=== PATIENT | female | born 1960 | race African-American/Black ===

== ENCOUNTER 2016-12-31 10:15 | Emergency (ER) | payer MEDICAID ==
[~2016-12-31] VITALS: Ht 157.5 cm; Wt 72.6 kg
[~2016-12-31 10:15] MED LIST: CHLO25TA22; ENAL-3; GABA300C8; METF-314; NITR0.4S31; OLAN15TA16; PREDNISONE 20 MG TABLET; SIMV-13; TRAM50TA2; TRAZ150T79; [UNRECOGNIZED DRUG - CODE]
[2016-12-31 15:26] VITALS: BP 194/93
== END 2016-12-31 15:31 | disposition home or self-care (01) ==
LOC: ER 10:15
DX: G89.29 Other chronic pain (principal); M54.5 Low back pain; Z76.0 Encounter for issue of repeat prescription; Z88.8 Allergy status to other drugs, medicaments and biological substances; E11.9 Type 2 diabetes mellitus without complications; E78.5 Hyperlipidemia, unspecified; I10 Essential (primary) hypertension; Z90.710 Acquired absence of both cervix and uterus; F17.210 Nicotine dependence, cigarettes, uncomplicated; F12.10 Cannabis abuse, uncomplicated; Z79.899 Other long term (current) drug therapy

== ENCOUNTER 2017-01-10 18:39 | Emergency (ER) | payer MEDICAID ==
[~2017-01-10] VITALS: Ht 165.1 cm; Wt 71.7 kg
[2017-01-10 18:47] VITALS: BP 138/99
== END 2017-01-11 00:38 | disposition left against medical advice (07) ==
LOC: ER 18:39
DX: M79.605 Pain in left leg (principal); M79.604 Pain in right leg; Z53.21 Procedure and treatment not carried out due to patient leaving prior to being seen by health care provider

== ENCOUNTER 2017-04-06 14:49 | Emergency (ER) | payer MEDICAID ==
[~2017-04-06] VITALS: Ht 160 cm; Wt 72.6 kg
[~2017-04-06 14:49] MED LIST changes: +GABA-497; -GABA300C8; -METF-314; +METF-371
[2017-04-06 15:05] VITALS: BP 143/92
[2017-04-06] MEDS ORDERED: KETOROLAC TROMETH 60MG/2ML VIAL IM ONE (16:00)
== END 2017-04-06 16:24 | disposition home or self-care (01) ==
LOC: ER 14:49
DX: G89.29 Other chronic pain (principal); M54.5 Low back pain; E11.9 Type 2 diabetes mellitus without complications; E78.5 Hyperlipidemia, unspecified; I10 Essential (primary) hypertension; F17.210 Nicotine dependence, cigarettes, uncomplicated; F12.90 Cannabis use, unspecified, uncomplicated; M51.36 Other intervertebral disc degeneration, lumbar region; Z91.018 Allergy to other foods; Z90.710 Acquired absence of both cervix and uterus
CPT/HCPCS: 96372; 99283; J1885

== ENCOUNTER 2017-04-12 11:17 | Emergency (ER) | payer MEDICAID ==
[~2017-04-12] VITALS: Ht 160 cm; Wt 68.0 kg
[2017-04-12 12:59] VITALS: BP 163/96
== END 2017-04-12 13:38 | disposition home or self-care (01) ==
LOC: ER 11:17
DX: G89.29 Other chronic pain (principal); M54.5 Low back pain; E11.9 Type 2 diabetes mellitus without complications; E78.5 Hyperlipidemia, unspecified; I10 Essential (primary) hypertension; F17.210 Nicotine dependence, cigarettes, uncomplicated; F12.10 Cannabis abuse, uncomplicated; Z90.710 Acquired absence of both cervix and uterus; Z76.0 Encounter for issue of repeat prescription; Z91.018 Allergy to other foods; Z79.899 Other long term (current) drug therapy

== ENCOUNTER 2018-11-28 12:06 | Inpatient (IN) | payer MEDICAID ==
[~2018-11-28] VITALS: Ht 160 cm; Wt 84.0 kg
[~2018-11-28 12:06] MED LIST changes: -GABA-497; +GABA300C10
[2018-11-28] MEDS ORDERED: ASPirin 81 mg TAB PO ONE ×2 (13:15→13:30)
[2018-11-28 14:04] LABS: Albumin 3.6 g/dL (3.4-5.0); Anion Gap 7 (5-15); Blood Urea Nitrogen 14 mg/dL (7-18); Calcium 9.4 mg/dL (8.5-10.1); Carbon Dioxide 27 mmol/L (21-32); Chloride 105 mmol/L (98-107); Glucose 83 mg/dL (74-106); Magnesium 2.7 mg/dL (1.6-2.6); Potassium 3.7 mmol/L (3.5-5.1); Sodium 139 mmol/L (136-145)
[2018-11-28 14:07] LABS: Alanine Aminotransferase 14 U/L (13-56); Aspartate Aminotransferase 15 U/L (15-37); BUN/Creatinine Ratio 13.6; GFR African American 71 mL/min; GFR Non-African American 59 mL/min
[2018-11-28 14:12] LABS: Alkaline Phosphatase 159 U/L (45-117); Bilirubin, Total 0.2 mg/dL (0.2-1.0); Total Protein 8.2 g/dL (6.4-8.2)
[2018-11-28 14:13] LABS: INR 0.93 (0.9-1.15); Partial Thromboplastin Time 33.6 sec (23.78-33.04)
[2018-11-28 14:18] LABS: Hemoglobin 14.2 g/dL (12.2-16.2); Red Cell Distribution Width 13.4 % (11.8-14.3); White Blood Cell 6.5 10^3/uL (4.4-10.8)
[2018-11-28 14:20] LABS: Hematocrit 43.5 % (36.0-46.0); Mean Corpuscular Hgb Conc. 32.7 g/dL (32.0-36.0); Mean Corpuscular Volume 88.7 fL (80.0-100.0); Platelet Count (auto) 500 10^3/uL (140-450)
[2018-11-28 14:22] LABS: Band Neutrophils % (manual) 0; Basophils % (manual) 0 (0.0-2.0); Blast Cells 0; Metamyelocytes % 0; Myelocytes % 0; Promyelocytes % 0
[2018-11-28 15:38] LABS: Eosinophils % (manual) 3 (0-7); Lymphocytes % (manual) 43 (10.0-50.0); Monocytes % (manual) 16 (0-12); Reactive Lymphocytes 9
[2018-11-28] MEDS ORDERED: IOHEXOL 350 MG/ML 100ML IJ ONE (16:44)
[2018-11-28] MEDS ORDERED: DEXTROSE (50%) 50ML SYRG IV PRN (19:30)
[2018-11-28] MEDS ORDERED: ACETAMINOPHEN 500 MG TAB PO PRN (19:30)
[2018-11-28] MEDS ORDERED: LACTULOSE 20Gm/30ML SOLN PO PRN (19:30)
[2018-11-28] MEDS ORDERED: PROMETHAZINE HCL 25 MG/ML 1ML IV PRN (19:30)
[2018-11-28] MEDS ORDERED: NITROGLYCERIN 0.4 MG SL TAB SL PRN (19:30)
[2018-11-28] MEDS ORDERED: TEMAZEPAM 15 MG CAP PO PRN (19:30)
[2018-11-28] MEDS ORDERED: MORPHINE SULF INJ 2 MG/ML SYRINGE 1ML IV PRN (19:30)
[2018-11-28] MEDS: SODIUM CHLORIDE 0.9% 1,000 ML IV SCH (20:43)
[2018-11-28 21:30] VITALS: BP 133/87
--- NOTE | 2018-11-28 21:50 | NUR ---
Telemetry admit from ER KATHLEEN AMAYA admitted to Telemetry unit after SBAR received. Patient oriented to Laura sigala RN, unit, room, bed, and unit policies regarding patient care and visiting hours. Patient now on continuous telemetry monitoring, tele box # HC 7 and telemetry reading on arrival to unit is SR 77. Patient placed on bedside oxygen, weighed by bedscale and encouraged to call if they need something. All questions and concerns addressed, patient verbalized understanding. Note:
[2018-11-28 22:30] VITALS: BP 133/87
[2018-11-28] MEDS: InsuLIN REG 1unit/0.01ml Soln (100units/ml) SC SCH (22:30)
[2018-11-28] MEDS: traZODone HCL 50 MG TAB PO SCH (23:01)
[2018-11-28] MEDS: ATORVASTATIN 20 MG TAB PO SCH (23:02)
[2018-11-28] MEDS: GABAPENTIN 300 MG CAP PO SCH (23:03)
[2018-11-28] MEDS: METOPROLOL TARTRATE 25 MG TAB PO SCH (23:03)
[2018-11-28] MEDS: ACCU-CHEK COMFORT CURVE STRIP VI SCH (23:04)
[2018-11-29] MEDS ORDERED: MIR30T PO (03:43)
[2018-11-29] MEDS ORDERED: ESCI20TA51 PO (03:43)
[2018-11-29] MEDS ORDERED: TRAZ-220 PO (03:43)
[2018-11-29] MEDS ORDERED: CYCL5TAB PO (03:43)
[2018-11-29] MEDS ORDERED: LISI-646 PO (03:43)
[2018-11-29] MEDS ORDERED: CHOL20007 OR (03:43)
[2018-11-29] MEDS ORDERED: METF-489 PO (03:43)
[2018-11-29] MEDS ORDERED: ASPI81CH43 PO (03:43)
[2018-11-29] MEDS ORDERED: MELO1TAB56 PO (03:43)
[2018-11-29] MEDS ORDERED: FER325T PO (03:43)
[2018-11-29] MEDS ORDERED: LURA80TA PO (03:43)
[2018-11-29] MEDS: InsuLIN REG 1unit/0.01ml Soln (100units/ml) SC SCH ×4 (05:36→22:00)
[2018-11-29] MEDS: traMADol HCL 50 MG TAB PO PRN ×2 (05:36→21:36)
[2018-11-29] MEDS: ACCU-CHEK COMFORT CURVE STRIP VI SCH ×4 (05:36→22:00)
[2018-11-29 05:40] VITALS: BP 141/73
[2018-11-29 06:01] LABS: Cholesterol 225 mg/dL (< 200); HDL Cholesterol 39 mg/dL (40-59); LDL Cholesterol 163 mg/dL (< 100); Triglycerides 130 mg/dL (< 150)
--- NOTE | 2018-11-29 08:00 | NUR ---
Opening Shift Note Assumed care of patient, awake, alert and oriented X4. No S/S of distress/SOB or pain. Tele# 7, sinus rhythm @ 70 bpm. IV to left antecubital, 20 gauge, patent and infusing 0.9% NS @ 75 ml/hr. Instructed on POC and to call for assist PRN, verbalized understanding. Bed locked, in lowest position, call light within reach, will continue to monitor for changes Q1hr and PRN.
[2018-11-29 09:00] VITALS: BP 135/72
--- NOTE | 2018-11-29 10:20 | NUR ---
CARDIO Dr Sweet at bedside for Cardiology consult, new orders received and followed through. Patient updated on plan of care, verbalized understanding.
[2018-11-29] MEDS: ASPirin 81 mg TAB PO SCH (10:51)
[2018-11-29] MEDS: METOPROLOL TARTRATE 25 MG TAB PO SCH ×2 (10:52→21:26)
[2018-11-29] MEDS: GABAPENTIN 300 MG CAP PO SCH ×2 (10:52→21:27)
[2018-11-29] MEDS: PANTOPRAZOLE 40 MG TAB PO SCH (10:52)
[2018-11-29] MEDS: ENALAPRIL MALEATE 10 MG TAB PO SCH (10:52)
[2018-11-29] MEDS: OLANZapine 5 MG TAB PO SCH (10:53)
[2018-11-29] MEDS: ENOXAPARIN SOD 40 MG/0.4 ML SYRINGE SC SCH (10:53)
[2018-11-29] MEDS: NITROGLYCERIN 0.2MG/HR TOPICAL PATCH TD SCH (10:54)
[2018-11-29 13:00] VITALS: BP_SYST 134; BP_SYST 159; BP_DIAS 68; BP_DIAS 78
[2018-11-29] MEDS: SODIUM CHLORIDE 0.9% 1,000 ML IV SCH (14:40)
--- NOTE | 2018-11-29 19:24 | NUR ---
Care endorsed to OTONIEL Barreto, night nurse.
[2018-11-29 20:36] VITALS: BP 134/72
[2018-11-29] MEDS: ATORVASTATIN 20 MG TAB PO SCH (21:25)
[2018-11-29] MEDS: traZODone HCL 50 MG TAB PO SCH (21:33)
--- NOTE | 2018-11-30 04:24 | NUR ---
Opening Shift Note Assumed care of patient, awake and alert. No S/S of distress/SOB or pain. Insructed on POC and to callfor assist PRN, will continue to monitor for changes Q1hr and PRN.
[2018-11-30 04:52] VITALS: BP 136/72
[2018-11-30] MEDS: SODIUM CHLORIDE 0.9% 1,000 ML IV SCH ×2 (06:00→17:51)
[2018-11-30] MEDS: ACCU-CHEK COMFORT CURVE STRIP VI SCH ×4 (07:00→21:47)
[2018-11-30] MEDS: InsuLIN REG 1unit/0.01ml Soln (100units/ml) SC SCH ×4 (07:00→21:47)
--- NOTE | 2018-11-30 08:00 | NUR ---
Opening Shift Note Assumed care of patient, awake, alert and oriented X4. No S/S of distress/SOB or pain. Tele #7, sinus rhythm @62 bpm. IV to left antecubital, 20 gauge, patent and infusing 0.9% NS @ 75 ml/hr. Instructed on POC and to call for assist PRN, verbalized understanding. Bed locked, in lowest position, call light within reach, will continue to monitor for changes Q1hr and PRN.
[2018-11-30 09:00] VITALS: BP 163/79
--- NOTE | 2018-11-30 10:35 | NUR ---
CARDIOLOGY Dr Sweet at bedside for Cardiac follow up, new orders received and followed through. Patient updated on plan of care, verbalized understanding.
[2018-11-30] MEDS: ASPirin 81 mg TAB PO SCH (10:48)
[2018-11-30] MEDS: ENOXAPARIN SOD 40 MG/0.4 ML SYRINGE SC SCH (10:49)
[2018-11-30] MEDS: METOPROLOL TARTRATE 25 MG TAB PO SCH ×2 (10:49→21:47)
[2018-11-30] MEDS: GABAPENTIN 300 MG CAP PO SCH ×2 (10:49→21:47)
[2018-11-30] MEDS: PANTOPRAZOLE 40 MG TAB PO SCH (10:49)
[2018-11-30] MEDS: OLANZapine 5 MG TAB PO SCH (10:50)
[2018-11-30] MEDS: ENALAPRIL MALEATE 10 MG TAB PO SCH (10:50)
[2018-11-30] MEDS: NITROGLYCERIN 0.2MG/HR TOPICAL PATCH TD SCH (10:51)
--- NOTE | 2018-11-30 11:05 | NUR ---
KATHLEEN AMAYA states they want to leave the floor Against Medical Advice (AMA) to go outside and smoke. Patient encouraged to stay on floor and not smoke. Dr Givens notified of patient's wishes. Patient advised of the risks and benefits of leaving AMA. Patient verbalized understanding and signed required AMA form.
--- NOTE | 2018-11-30 11:27 | NUR ---
ROUNDS Dr Givens at bedside for rounds, new orders received and followed through. Patient updated on plan of care, verbalized understanding.
[2018-11-30 13:00] VITALS: BP 158/76
[2018-11-30] MEDS: traMADol HCL 50 MG TAB PO PRN (16:33)
[2018-11-30 17:00] VITALS: BP 135/72
--- NOTE | 2018-11-30 19:12 | NUR ---
Care endorsed to OTONIEL Lee, night nurse.
--- NOTE | 2018-11-30 19:40 | NUR ---
Opening Shift Note Assumed care of patient, awake and alert. No S/S of distress/SOB or pain. Bed locked in lowest position, side rails upx2, call light within reach. Instructed on POC and to call for assist PRN, will continue to monitor for changes Q1hr and PRN.
--- NOTE | 2018-11-30 20:30 | NUR ---
IV insertion IV access obtained, via clean sterile technique by inserting 22 gauge catheter at right hand after 1 attempt(s). IV secured properly. No trauma to site. Patient tolerated well.
[2018-11-30] MEDS: ATORVASTATIN 20 MG TAB PO SCH (21:47)
[2018-11-30] MEDS: traZODone HCL 50 MG TAB PO SCH (21:47)
[2018-12-01 00:16] VITALS: BP 158/78
[2018-12-01] MEDS: SODIUM CHLORIDE 0.9% 1,000 ML IV SCH ×2 (00:47→14:07)
--- NOTE | 2018-12-01 05:03 | NUR ---
Paged hospitalist regarding patient's high blood pressure. Received orders to give 1000 scheduled dose of enalapril now. Will carry out.
[2018-12-01] MEDS: ENALAPRIL MALEATE 10 MG TAB PO SCH (05:13)
--- NOTE | 2018-12-01 05:24 | NUR ---
IV insertion IV access obtained, via clean sterile technique by inserting 20 gauge catheter at right forearm after 1 attempt(s). IV secured properly. No trauma to site. Patient tolerated well.
[2018-12-01 05:35] VITALS: BP 168/84
[2018-12-01] MEDS: InsuLIN REG 1unit/0.01ml Soln (100units/ml) SC SCH ×4 (06:19→22:00)
[2018-12-01] MEDS: ACCU-CHEK COMFORT CURVE STRIP VI SCH ×4 (06:20→22:00)
[2018-12-01 07:55] VITALS: BP 142/78
[2018-12-01] MEDS ORDERED: MIDAZOLAM HCL 1MG/1ML-2 ML VIAL IV ONE (08:00)
[2018-12-01] MEDS ORDERED: fentaNYL CITRATE 100 MCG/2 ML VL IV ONE (08:00)
[2018-12-01] MEDS ORDERED: LIDOCAINE VISCOUS 2% 15ML UD MT ONE (08:00)
--- NOTE | 2018-12-01 08:00 | NUR ---
RECEIVED PATIENT ALERT AND ORIENTED X4, NOT IN DISTRESS, LUNG SOUNDS CLEAR SOUNDS IN BILATERAL UPPER AND LOWER LUNG LOBED, RR= 20 JGZ=655%, SR R=80 ON TELE MONITOR, DENIED CHEST PAIN OR DISCOMFORT AT THIS MOMENT, ABDOMEN SOFT WITH ACTIVE BS, LAST BM=11/30/18 REPORTED, KEEP NPO ORDERED, SKIN INTACT WARM TO TOUCH, DENIED PAIN, WENT ON BED OUT OF UNIT FOR [facility], WILL CONTINUE MONITORING.
--- NOTE | 2018-12-01 08:30 | NUR ---
CAME BACK FROM [facility], TOLERATED WELL, TOLERATED BREAKFAST TRAY WELL, STRESS TEST NOTIFIED THAT PATIENT ATE BREAKFAST, KEEP NPO POST BREAKFAST ORDERED, WILL CONTINUE MONITORING.
[2018-12-01] MEDS ORDERED: ADENOSINE 69 MG in GIVE UN-DILUTED 0 ML IV STA (08:33)
--- NOTE | 2018-12-01 11:11 | NUR ---
WENT OUT OF THE UNIT FOR SMOKING AND CAME BACK , RESTING ON BED, NOT IN DISTRESS, DENIED PAIN, WILL CONTINUE MONITORING.
[2018-12-01] MEDS: ASPirin 81 mg TAB PO SCH (11:26)
[2018-12-01] MEDS: GABAPENTIN 300 MG CAP PO SCH ×2 (11:27→22:08)
[2018-12-01] MEDS: PANTOPRAZOLE 40 MG TAB PO SCH (11:27)
[2018-12-01] MEDS: METOPROLOL TARTRATE 25 MG TAB PO SCH ×2 (11:27→22:08)
[2018-12-01] MEDS: ENOXAPARIN SOD 40 MG/0.4 ML SYRINGE SC SCH (11:28)
[2018-12-01] MEDS: OLANZapine 5 MG TAB PO SCH (11:28)
[2018-12-01] MEDS: NITROGLYCERIN 0.2MG/HR TOPICAL PATCH TD SCH (11:29)
[2018-12-01 15:01] VITALS: BP 187/67
[2018-12-01] MEDS: traMADol HCL 50 MG TAB PO PRN (17:52)
--- NOTE | 2018-12-01 19:39 | NUR ---
NOT IN DISTRESS DENIED, DENIED PAIN, RESTING ON BED, REPORT WAS GIVEN TO THE BRASS [employer]DER HELPER RN.
[2018-12-01 21:59] VITALS: BP 157/85
[2018-12-01] MEDS: ATORVASTATIN 20 MG TAB PO SCH (22:07)
[2018-12-01] MEDS: traZODone HCL 50 MG TAB PO SCH (22:07)
[2018-12-02] MEDS: SODIUM CHLORIDE 0.9% 1,000 ML IV SCH (03:27)
[2018-12-02 04:56] VITALS: BP 162/86
[2018-12-02] MEDS: ACCU-CHEK COMFORT CURVE STRIP VI SCH ×2 (06:17→11:30)
[2018-12-02] MEDS: InsuLIN REG 1unit/0.01ml Soln (100units/ml) SC SCH ×2 (06:17→11:30)
--- NOTE | 2018-12-02 07:31 | NUR ---
RECEIVED PATIENT ALERT AND ORIENTED X4, NOT IN DISTRESS, LUNG CLEAR SOUNDS IN BILATERAL UPPER AND DIMINISHED IN BILATERAL LOWER LUNG LOBED, RR= 20 SAT=95%, SR R=71 ON TELE MONITOR, ABDOMEN SOFT WITH ACTIVE BS, LAST BM=12/01/18 REPORTED, SKIN INTACT WARM TO TOUCH, RESTING AND SLEEPING ON BED, HEAD OF BED ELEVATED, BED ON LOW POSITION, RAILS UP X2, CALL LIGHT ON REACH, WILL CONTINUE MONITORING.
[2018-12-02 08:00] VITALS: BP 151/75
[2018-12-02] MEDS: ASPirin 81 mg TAB PO SCH (10:05)
[2018-12-02] MEDS: OLANZapine 5 MG TAB PO SCH (10:06)
[2018-12-02] MEDS: GABAPENTIN 300 MG CAP PO SCH (10:06)
[2018-12-02] MEDS: METOPROLOL TARTRATE 25 MG TAB PO SCH (10:06)
[2018-12-02] MEDS: ENOXAPARIN SOD 40 MG/0.4 ML SYRINGE SC SCH (10:07)
[2018-12-02] MEDS: NITROGLYCERIN 0.2MG/HR TOPICAL PATCH TD SCH (10:07)
[2018-12-02] MEDS: traMADol HCL 50 MG TAB PO PRN (10:08)
[2018-12-02] MEDS: PANTOPRAZOLE 40 MG TAB PO SCH (10:09)
[2018-12-02] MEDS: ENALAPRIL MALEATE 10 MG TAB PO SCH (10:09)
--- NOTE | 2018-12-02 10:45 | NUR ---
NOT IN DISTRESS, DENIED PAIN, WENT OUT OF THE UNIT FOR SMOKING, AMA FOR SMOKING ON THE CHART.
--- NOTE | 2018-12-02 11:49 | NUR ---
CAME BACK TO THE ROOM FROM SMOKING, NOT IN DISTRESS, DENIED PAIN, RESTING ON BED.
--- NOTE | 2018-12-02 12:45 | NUR ---
Nutrition Assessment Notes please see attached link for complete assessment Est. Needs ABW [id number] kcal (23-25 kcal/kgBW), 65-71 gms pro (1.0-1.1 gm/kgBW). Will continue to monitor pertinent labs and reassess nutrient need prn. Addendum: 12/02/18 at [address] Amended: Links added.
[2018-12-02 13:47] VITALS: BP 146/82
[2018-12-02 15:00] VITALS: BP 139/78
--- NOTE | 2018-12-02 15:30 | NUR ---
D/C INSTRUCTIONS WERE GIVEN, FOLLOW UP WITH PCP AND CARDIOLOGY INFORMATION AND EDUCATION PROVIDED, VERBALIZED UNDERSTANDING, FOLLOW UP APPOINTMENT WITH DR. GONZALES WILL BE ARRANGED FROM HOME REPORTED, D/C TELE MONITOR AND IV SITES, TOLERATED WELL, VS T=97.8 RR=18 SAT=96% P=68 XG=298/78, NOT IN DISTRESS AND DENIED PAIN, WC WAS PROVIDED, D/C HOME WALKING WITH WALKER ACCOMPANIED BY FAMILY MEMBERS, TOOK ALL BELONGINGS AND LEFT NOTHING BEHIND.
== END 2018-12-02 15:30 | disposition home or self-care (01) | DRG 198 ==
LOC: ER 12:10 → TELE 19:31 → TELE-WESTW 23:05
PROVIDERS: ADMIT Internal Medicine; ATTEND Internal Medicine
PROC: B246ZZ4 Ultrasonography of Right and Left Heart, Transesophageal (ICD-10-PCS; principal; 2018-11-28)
DX: R07.89 Other chest pain (principal); I25.10 Atherosclerotic heart disease of native coronary artery without angina pectoris; E11.21 Type 2 diabetes mellitus with diabetic nephropathy; F41.9 Anxiety disorder, unspecified; F32.9 Major depressive disorder, single episode, unspecified; I10 Essential (primary) hypertension; E78.5 Hyperlipidemia, unspecified; E11.65 Type 2 diabetes mellitus with hyperglycemia; E83.41 Hypermagnesemia; F17.210 Nicotine dependence, cigarettes, uncomplicated; I35.1 Nonrheumatic aortic (valve) insufficiency; M06.9 Rheumatoid arthritis, unspecified; Z82.49 Family history of ischemic heart disease and other diseases of the circulatory system; Z83.3 Family history of diabetes mellitus; Z90.710 Acquired absence of both cervix and uterus; Z91.018 Allergy to other foods; Z79.899 Other long term (current) drug therapy
CPT/HCPCS: 36415; 71046; 71275; 78452; 80053; 80061; 82550; 82962; 83036; 83735; 83880; 84443; 84484; 85007; 85027; 85379; 85610; 85652; 85730; 86141; 87040; 93005; 93017; 93306; 93312; 96360; G0378; J0153; J1815; J2250

== ENCOUNTER 2021-12-19 21:09 | Inpatient (IN) | payer MEDICAID ==
[~2021-12-19] VITALS: Ht 157.5 cm; Wt 63.9 kg
[~2021-12-19 21:09] MED LIST changes: +ASPI81CH43 PO; +CHLO25TA2 PO; -CHLO25TA22; +CHOL20007 OR; +CYCL-837 PO; -ENAL-3; +ENAL10TA13 PO; +ESCI-34 PO; +FER325T PO; -GABA300C10; +GABA300C10 PO; +LISI20TA28 PO; +LURA80TA PO; +MELO1TAB56 PO; -METF-371; +METF-489 PO; +MIR30T PO; +OLAN15TA; -OLAN15TA16; -PREDNISONE 20 MG TABLET; +TRAZ-220 PO; -TRAZ150T79; -[UNRECOGNIZED DRUG - CODE]
[2021-12-19 22:37] LABS: Hematocrit 15.2 % (36.0-46.0); Mean Corpuscular Hemoglobin 15.4 pg (28.0-32.0); Mean Corpuscular Hgb Conc. 27.9 g/dL (32.0-36.0); Red Blood Cells 2.77 10^6/uL (4.0-5.20); White Blood Cell 9.9 10^3/uL (4.4-10.8)
[2021-12-19 22:48] LABS: Albumin 3.2 g/dL (3.4-5.0); Calcium 9.2 mg/dL (8.5-10.1); Magnesium 2.4 mg/dL (1.6-2.6); Potassium 4.3 mmol/L (3.5-5.1)
[2021-12-19 22:50] LABS: BUN/Creatinine Ratio 16.2
[2021-12-19 22:51] LABS: INR 1.07 (0.9-1.15); Partial Thromboplastin Time 24.4 sec (23.6-33.0)
[2021-12-19 22:52] LABS: Bilirubin, Total 0.2 mg/dL (0.2-1.0); Total Protein 6.2 g/dL (6.4-8.2)
[2021-12-19 23:00] LABS: Red Cell Distribution Width 20.6 % (11.8-14.3)
[2021-12-19 23:02] LABS: Hemoglobin 4.3 g/dL (12.2-16.2)
[2021-12-19 23:03] LABS: Basophils % (manual) 0 (0.0-2.0); Blast Cells 0; Eosinophils % (manual) 0 (0-7); Metamyelocytes % 0; Myelocytes % 0; Promyelocytes % 0; Reactive Lymphocytes 0
[2021-12-19 23:24] LABS: Band Neutrophils % (manual) 1; Lymphocytes % (manual) 20 (10.0-50.0); Monocytes % (manual) 6 (0-12)
[2021-12-19] MEDS ORDERED: CLOPIDOGREL 300 MG TAB PO ONE (23:30)
[2021-12-19] MEDS ORDERED: HEPARIN DRIP/D5W 100UNITS/ML 250 ML IV SCH (23:30)
[2021-12-19] MEDS ORDERED: HEPARIN SODIUM (PORCINE) 5000 UNITS/ML 1ML VIAL SC SCH (23:45)
[2021-12-20] VITALS (8 sets, daily range): BP systolic 145–189; BP diastolic 70–98
[2021-12-20] MEDS ORDERED: ONDANSETRON HCL 4 MG/2 ML VIAL IV PRN (02:45)
[2021-12-20] MEDS ORDERED: MORPHINE SULFATE INJECTION 2 MG/ML SYRG IV PRN (02:45)
[2021-12-20] MEDS ORDERED: DEXTROSE (50%) 50ML SYRG IV PRN (02:45)
[2021-12-20] MEDS ORDERED: NITROGLYCERIN 0.4 MG SL TAB SL PRN (02:45)
[2021-12-20] MEDS ORDERED: SODIUM CHLORIDE 0.9% 1,000 ML IV SCH (02:45)
[2021-12-20 03:22] LABS: % Iron Saturation 3.5 % (15-50)
[2021-12-20] MEDS: InsuLIN REG 1unit/0.01ml Soln (100units/ml) SC SCH ×4 (06:00→23:37)
[2021-12-20] MEDS: ACCU-CHEK COMFORT CURVE STRIP VI SCH ×4 (06:00→23:37)
[2021-12-20 07:11] LABS: Hematocrit 24.2 % (36.0-46.0); Hemoglobin 7.8 g/dL (12.2-16.2)
[2021-12-20] MEDS ORDERED: HEPARIN DRIP/D5W 100UNITS/ML 250 ML IV SCH (09:00)
[2021-12-20 09:29] LABS: INR 1.09 (0.9-1.15); Partial Thromboplastin Time 34.7 sec (23.6-33.0)
[2021-12-20] MEDS ORDERED: HEPARIN SODIUM (PORCINE) 5000 UNITS/ML 1ML VIAL IV ONE (10:30)
[2021-12-20] MEDS: PANTOPRAZOLE 40 MG/10 ML VIAL INJ IV SCH (10:50)
[2021-12-20] MEDS ORDERED: NICOTINE 21MG/24 HR TOPICAL PATCH TD ONE (12:45)
[2021-12-20] MEDS ORDERED: CARVEDILOL 3.125 MG TAB PO ONE (13:00)
[2021-12-20] MEDS: SODIUM CHLORIDE 0.9% 1,000 ML IV SCH (13:15)
[2021-12-20 14:27] LABS: Hematocrit 28.9 % (36.0-46.0); Hemoglobin 8.6 g/dL (12.2-16.2)
[2021-12-20] MEDS: CARVEDILOL 3.125 MG TAB PO SCH (21:35)
[2021-12-20] MEDS: ATORVASTATIN 20 MG TAB PO SCH (21:35)
[2021-12-20] MEDS ORDERED: LABETALOL HCL 5 MG/ML 4ML SYRINGE IV ONE (22:45)
[2021-12-20] MEDS ORDERED: TEMAZEPAM 15 MG CAP PO ONE (22:45)
[2021-12-21 05:00] VITALS: BP 158/88
[2021-12-21] MEDS: SODIUM CHLORIDE 0.9% 1,000 ML IV SCH ×2 (05:25→22:05)
[2021-12-21] MEDS: InsuLIN REG 1unit/0.01ml Soln (100units/ml) SC SCH ×2 (06:00→12:00)
[2021-12-21 06:03] LABS: Calcium 8.6 mg/dL (8.5-10.1); Magnesium 2.2 mg/dL (1.6-2.6); Potassium 4.2 mmol/L (3.5-5.1)
[2021-12-21 06:08] LABS: BUN/Creatinine Ratio 11.9; Bilirubin, Total 1.3 mg/dL (0.2-1.0); Total Protein 6.4 g/dL (6.4-8.2)
[2021-12-21 06:10] LABS: Mean Corpuscular Hgb Conc. 31.1 g/dL (32.0-36.0); White Blood Cell 13.7 10^3/uL (4.4-10.8)
[2021-12-21 06:12] LABS: Hematocrit 25.4 % (36.0-46.0); Hemoglobin 7.9 g/dL (12.2-16.2); Mean Corpuscular Hemoglobin 20.7 pg (28.0-32.0); Mean Corpuscular Volume 66.5 fL (80.0-100.0); Red Blood Cells 3.81 10^6/uL (4.0-5.20)
[2021-12-21 06:22] LABS: Basophils % (manual) 0 (0.0-2.0); Blast Cells 0; Eosinophils % (manual) 0 (0-7); Metamyelocytes % 0; Myelocytes % 0; Promyelocytes % 0; Reactive Lymphocytes 0
[2021-12-21] MEDS: ACCU-CHEK COMFORT CURVE STRIP VI SCH ×2 (06:22→12:26)
[2021-12-21 09:11] LABS: Band Neutrophils % (manual) 2; Lymphocytes % (manual) 11 (10.0-50.0); Monocytes % (manual) 5 (0-12)
[2021-12-21 09:12] VITALS: BP 173/84
[2021-12-21] MEDS: PANTOPRAZOLE 40 MG/10 ML VIAL INJ IV SCH (09:44)
[2021-12-21] MEDS: DOCUSATE SOD 100 MG CAP PO SCH ×2 (09:44→21:50)
[2021-12-21] MEDS: CARVEDILOL 3.125 MG TAB PO SCH (09:45)
[2021-12-21] MEDS: NICOTINE 21MG/24 HR TOPICAL PATCH TD SCH (09:46)
[2021-12-21 13:00] VITALS: BP 174/90
[2021-12-21] MEDS ORDERED: MIDAZOLAM HCL 5 MG/ML-1ML VIAL ONE (13:29)
[2021-12-21] MEDS ORDERED: LIDOCAINE VISCOUS 2% 15ML UD ONE (13:29)
[2021-12-21] MEDS ORDERED: diphenhdrAMINE HCL 50 MG/1 ML VL ONE (13:29)
[2021-12-21] MEDS ORDERED: fentaNYL CITRATE 100 MCG/2 ML VL ONE (13:29)
[2021-12-21] MEDS ORDERED: SODIUM CHLORIDE LOCK 10 ML ONE (13:29)
[2021-12-21] MEDS: hydrALAZINE HCL 20 MG/ML VL IV PRN ×2 (16:54→22:58)
[2021-12-21 17:10] VITALS: BP 176/78
[2021-12-21] MEDS: CARVEDILOL 12.5 MG TAB PO SCH (21:51)
[2021-12-21] MEDS: ATORVASTATIN 20 MG TAB PO SCH (21:51)
[2021-12-21 22:00] VITALS: BP 163/89
[2021-12-22 05:00] VITALS: BP 152/113
[2021-12-22 05:49] LABS: Hematocrit 25.5 % (36.0-46.0); Mean Corpuscular Hgb Conc. 31.3 g/dL (32.0-36.0); Mean Corpuscular Volume 67.1 fL (80.0-100.0); White Blood Cell 8.4 10^3/uL (4.4-10.8)
[2021-12-22] MEDS: hydrALAZINE HCL 20 MG/ML VL IV PRN (05:53)
[2021-12-22 06:01] LABS: Calcium 8.2 mg/dL (8.5-10.1)
[2021-12-22 06:08] LABS: Red Cell Distribution Width 35.1 % (11.8-14.3)
[2021-12-22 06:11] LABS: BUN/Creatinine Ratio 17.2; Basophils % (manual) 0 (0.0-2.0); Blast Cells 0; Metamyelocytes % 0; Myelocytes % 0; Promyelocytes % 0; Reactive Lymphocytes 0
[2021-12-22 06:34] LABS: Band Neutrophils % (manual) 3; Eosinophils % (manual) 6 (0-7); Lymphocytes % (manual) 14 (10.0-50.0); Monocytes % (manual) 8 (0-12)
[2021-12-22 09:00] VITALS: BP 108/50
[2021-12-22] MEDS: DOCUSATE SOD 100 MG CAP PO SCH ×2 (09:06→23:14)
[2021-12-22] MEDS: NICOTINE 21MG/24 HR TOPICAL PATCH TD SCH (09:06)
[2021-12-22] MEDS: CARVEDILOL 12.5 MG TAB PO SCH ×2 (09:06→22:56)
[2021-12-22] MEDS: PANTOPRAZOLE 40 MG/10 ML VIAL INJ IV SCH ×3 (09:06→23:12)
[2021-12-22] MEDS ORDERED: SODIUM CHLORIDE 0.9% 1,000 ML IV SCH (12:45)
[2021-12-22 13:00] VITALS: BP 146/68
[2021-12-22] MEDS: SODIUM FERR GLUC 62.5MG/5ML 125 MG in SODIUM CHL 0.9% 100 ML IV SCH (14:13)
[2021-12-22 16:39] VITALS: BP 137/68
[2021-12-22] MEDS: SUCRALFATE 1 GM TAB PO SCH ×2 (17:17→22:55)
[2021-12-22 22:00] VITALS: BP 161/79
[2021-12-22] MEDS: ATORVASTATIN 20 MG TAB PO SCH (22:56)
[2021-12-22] MEDS: ASCORBIC ACID 500 MG TAB PO SCH (22:57)
[2021-12-23 05:00] VITALS: BP 152/78
[2021-12-23] MEDS: hydrALAZINE HCL 20 MG/ML VL IV PRN ×2 (05:16→18:54)
[2021-12-23] MEDS: SUCRALFATE 1 GM TAB PO SCH ×4 (06:44→22:37)
[2021-12-23 08:11] LABS: Mean Corpuscular Volume 66.2 fL (80.0-100.0)
[2021-12-23 08:13] LABS: Hematocrit 25.7 % (36.0-46.0); Hemoglobin 8.1 g/dL (12.2-16.2); Mean Corpuscular Hemoglobin 20.8 pg (28.0-32.0); Mean Corpuscular Hgb Conc. 31.5 g/dL (32.0-36.0); Red Blood Cells 3.88 10^6/uL (4.0-5.20)
[2021-12-23 08:23] LABS: Red Cell Distribution Width 34.9 % (11.8-14.3)
[2021-12-23 08:25] LABS: Band Neutrophils % (manual) 0; Basophils % (manual) 0 (0.0-2.0); Blast Cells 0; Metamyelocytes % 0; Myelocytes % 0; Promyelocytes % 0; Reactive Lymphocytes 0
[2021-12-23 08:28] LABS: Calcium 8.6 mg/dL (8.5-10.1); Potassium 3.7 mmol/L (3.5-5.1)
[2021-12-23 08:32] LABS: BUN/Creatinine Ratio 14.6
[2021-12-23 08:41] LABS: Eosinophils % (manual) 6 (0-7); Lymphocytes % (manual) 31 (10.0-50.0); Monocytes % (manual) 4 (0-12)
[2021-12-23 09:00] VITALS: BP 151/75
[2021-12-23] MEDS: PANTOPRAZOLE 40 MG/10 ML VIAL INJ IV SCH ×2 (09:08→22:34)
[2021-12-23] MEDS: DOCUSATE SOD 100 MG CAP PO SCH ×2 (09:09→22:34)
[2021-12-23] MEDS: CARVEDILOL 12.5 MG TAB PO SCH ×2 (09:09→22:35)
[2021-12-23] MEDS ORDERED: ZOLPIDEM TARTRATE 5 MG TAB PO PRN (10:00)
[2021-12-23] MEDS ORDERED: MORPHINE SULFATE 4 MG/ML SYR/VIAL IV PRN (10:00)
[2021-12-23] MEDS: ASCORBIC ACID 500 MG TAB PO SCH ×2 (10:51→22:37)
[2021-12-23] MEDS ORDERED: MORPHINE SULFATE INJECTION 2 MG/ML SYRG IV PRN (11:45)
[2021-12-23] MEDS: ASPirin 81 mg TAB PO SCH (12:07)
[2021-12-23] MEDS: SODIUM FERR GLUC 62.5MG/5ML 125 MG in SODIUM CHL 0.9% 100 ML IV SCH (12:08)
[2021-12-23] MEDS: NICOTINE 21MG/24 HR TOPICAL PATCH TD SCH (12:34)
[2021-12-23 13:00] VITALS: BP 147/69
[2021-12-23 17:00] VITALS: BP 163/83
[2021-12-23] MEDS: MORPHINE SULFATE INJECTION 2 MG/ML SYRG IV PRN (18:48)
[2021-12-23 22:00] VITALS: BP 115/60
[2021-12-23] MEDS: ATORVASTATIN 20 MG TAB PO SCH (22:36)
[2021-12-23] MEDS: ZOLPIDEM TARTRATE 5 MG TAB PO PRN (23:23)
[2021-12-24 05:00] VITALS: BP 133/77
[2021-12-24] MEDS: SUCRALFATE 1 GM TAB PO SCH ×4 (06:33→21:57)
[2021-12-24 08:50] VITALS: BP 147/63
[2021-12-24] MEDS: PANTOPRAZOLE 40 MG/10 ML VIAL INJ IV SCH ×2 (09:47→21:56)
[2021-12-24] MEDS: ASPirin 81 mg TAB PO SCH (09:47)
[2021-12-24] MEDS: ASCORBIC ACID 500 MG TAB PO SCH ×2 (09:50→21:58)
[2021-12-24] MEDS: DOCUSATE SOD 100 MG CAP PO SCH ×2 (09:50→21:58)
[2021-12-24] MEDS: NICOTINE 21MG/24 HR TOPICAL PATCH TD SCH (09:50)
[2021-12-24] MEDS: CARVEDILOL 12.5 MG TAB PO SCH ×2 (09:54→21:57)
[2021-12-24 13:00] VITALS: BP 144/74
[2021-12-24] MEDS: SODIUM FERR GLUC 62.5MG/5ML 125 MG in SODIUM CHL 0.9% 100 ML IV SCH (13:17)
[2021-12-24 16:36] VITALS: BP 147/70
[2021-12-24] MEDS: ATORVASTATIN 20 MG TAB PO SCH (21:58)
[2021-12-24 22:00] VITALS: BP 159/91
[2021-12-24] MEDS: ZOLPIDEM TARTRATE 5 MG TAB PO PRN (22:52)
[2021-12-24] MEDS: hydrALAZINE HCL 20 MG/ML VL IV PRN (23:15)
[2021-12-25] MEDS: MORPHINE SULFATE INJECTION 2 MG/ML SYRG IV PRN ×2 (04:20→22:10)
[2021-12-25 05:00] VITALS: BP 147/76
[2021-12-25] MEDS: SUCRALFATE 1 GM TAB PO SCH ×4 (06:26→21:56)
[2021-12-25 06:28] LABS: INR 1.02 (0.9-1.15); Partial Thromboplastin Time 30.1 sec (23.6-33.0)
[2021-12-25 06:31] LABS: Albumin 2.8 g/dL (3.4-5.0); Calcium 8.5 mg/dL (8.5-10.1); Potassium 3.9 mmol/L (3.5-5.1)
[2021-12-25 06:44] LABS: BUN/Creatinine Ratio 14.9; Bilirubin, Total 0.3 mg/dL (0.2-1.0); Total Protein 6.1 g/dL (6.4-8.2)
[2021-12-25 07:21] LABS: Eosinophils # (auto) 0.7 10 ^3/uL (0-0.8); Lymphocytes # (auto) 2.1 10 ^3/uL (0.4-5.4); Nucleated Red Blood Cells % 0.1 %
[2021-12-25 07:24] LABS: Basophils # (auto) 0.1 10 ^3/uL (0-0.2); Eosinophils % (auto) 6.5 % (0.0-7.0); Hematocrit 24.6 % (36.0-46.0); Hemoglobin 7.6 g/dL (12.2-16.2); Lymphocytes % (auto) 19.7 % (10.0-50.0); Mean Corpuscular Hemoglobin 21.2 pg (28.0-32.0); Mean Corpuscular Volume 68.4 fL (80.0-100.0); Monocytes # (auto) 0.9 10 ^3/uL (0-1.3); Monocytes % (auto) 8.1 % (0.0-12.0); Neutrophils % (auto) 64.7 % (37.0-80.0); Red Blood Cells 3.59 10^6/uL (4.0-5.20); White Blood Cell 10.8 10^3/uL (4.4-10.8)
[2021-12-25 07:30] LABS: Red Cell Distribution Width 35.1 % (11.8-14.3)
[2021-12-25] MEDS ORDERED: HEPARIN IN NS 1000Units/500mL 1,500 ML ONE (07:38)
[2021-12-25] MEDS ORDERED: IODIXANOL 320MG/ML 100ML BTL IV ONE (07:38)
[2021-12-25] MEDS ORDERED: LIDOCAINE 2%HCL (LOCAL ANESTH.) INJ 10ml MDV ONE (07:59)
[2021-12-25] MEDS ORDERED: MIDAZOLAM HCL 2MG/2ML 2ml VIAL (1mg/ml) ONE (08:03)
[2021-12-25] MEDS ORDERED: SODIUM CHL 0.9% 0 ML ONE (08:03)
[2021-12-25] MEDS ORDERED: ANGIOMAX 250 MG VIAL IV ONE (08:03)
[2021-12-25] MEDS ORDERED: HEPARIN SODIUM (PORCINE) 5000 UNITS/ML 1ML VIAL ONE (08:03)
[2021-12-25] MEDS ORDERED: VERAPAMIL 2.5MG/ML INJ 2ML VIAL IV ONE (08:03)
[2021-12-25] MEDS ORDERED: fentaNYL CITRATE 100 MCG/2 ML VL ONE (08:03)
[2021-12-25 09:16] VITALS: BP 151/82
[2021-12-25] MEDS: PANTOPRAZOLE 40 MG/10 ML VIAL INJ IV SCH ×2 (10:06→21:56)
[2021-12-25] MEDS: ASPirin 81 mg TAB PO SCH (10:07)
[2021-12-25] MEDS: DOCUSATE SOD 100 MG CAP PO SCH ×2 (10:07→21:57)
[2021-12-25] MEDS: ASCORBIC ACID 500 MG TAB PO SCH ×2 (10:09→21:58)
[2021-12-25] MEDS: NICOTINE 21MG/24 HR TOPICAL PATCH TD SCH (10:09)
[2021-12-25] MEDS: CARVEDILOL 12.5 MG TAB PO SCH ×2 (10:10→21:57)
[2021-12-25] MEDS: SODIUM FERR GLUC 62.5MG/5ML 125 MG in SODIUM CHL 0.9% 100 ML IV SCH (12:41)
[2021-12-25 13:00] VITALS: BP 134/67
[2021-12-25] MEDS ORDERED: CHOL20003 PO (15:22)
[2021-12-25] MEDS ORDERED: FUR20T PO (15:22)
[2021-12-25] MEDS ORDERED: POTA8TAB2 PO (15:22)
[2021-12-25] MEDS ORDERED: CLOP75TA70 PO (15:22)
[2021-12-25] MEDS ORDERED: SIMV-13 PO (15:22)
[2021-12-25 16:37] VITALS: BP_SYST 151; BP_SYST 156; BP_DIAS 82; BP_DIAS 85
[2021-12-25] MEDS: ATORVASTATIN 20 MG TAB PO SCH (21:57)
[2021-12-25] MEDS: hydrALAZINE HCL 20 MG/ML VL IV PRN (21:58)
[2021-12-25 22:00] VITALS: BP 158/79
[2021-12-25] MEDS: ZOLPIDEM TARTRATE 5 MG TAB PO PRN (22:42)
[2021-12-26 04:55] VITALS: BP 129/67
[2021-12-26 06:06] LABS: Basophils # (auto) 0.1 10 ^3/uL (0-0.2); Basophils % (auto) 1.2 % (0.0-2.0); Eosinophils # (auto) 0.5 10 ^3/uL (0-0.8); Hematocrit 24.6 % (36.0-46.0); Lymphocytes # (auto) 1.6 10 ^3/uL (0.4-5.4); Mean Corpuscular Volume 67.8 fL (80.0-100.0); Monocytes # (auto) 0.8 10 ^3/uL (0-1.3); Nucleated Red Blood Cells % 0.1 %; Red Blood Cells 3.63 10^6/uL (4.0-5.20)
[2021-12-26 06:10] LABS: Eosinophils % (auto) 4.4 % (0.0-7.0); Hemoglobin 7.6 g/dL (12.2-16.2); Lymphocytes % (auto) 14.4 % (10.0-50.0); Monocytes % (auto) 7.3 % (0.0-12.0); Neutrophils # (auto) 8.2 10 ^3/uL (1.6-8.6); Neutrophils % (auto) 72.7 % (37.0-80.0); White Blood Cell 11.2 10^3/uL (4.4-10.8)
[2021-12-26 06:26] LABS: BUN/Creatinine Ratio 12.5; Calcium 8.7 mg/dL (8.5-10.1); Magnesium 2.1 mg/dL (1.6-2.6)
[2021-12-26] MEDS: SUCRALFATE 1 GM TAB PO SCH ×2 (06:26→11:23)
[2021-12-26 06:32] LABS: Red Cell Distribution Width 35.4 % (11.8-14.3)
[2021-12-26 08:19] VITALS: BP 158/79
[2021-12-26] MEDS: ASPirin 81 mg TAB PO SCH (09:30)
[2021-12-26] MEDS: DOCUSATE SOD 100 MG CAP PO SCH (09:30)
[2021-12-26] MEDS: PANTOPRAZOLE 40 MG/10 ML VIAL INJ IV SCH (09:30)
[2021-12-26] MEDS: CARVEDILOL 12.5 MG TAB PO SCH (09:31)
[2021-12-26] MEDS: ASCORBIC ACID 500 MG TAB PO SCH (09:35)
[2021-12-26] MEDS: NICOTINE 21MG/24 HR TOPICAL PATCH TD SCH (09:36)
[2021-12-26] MEDS: SODIUM FERR GLUC 62.5MG/5ML 125 MG in SODIUM CHL 0.9% 100 ML IV SCH (12:10)
[2021-12-26] MEDS ORDERED: CAR125T PO (13:09)
[2021-12-26] MEDS ORDERED: FER325T PO (13:09)
[2021-12-26] MEDS ORDERED: PANT40TA2 PO (13:09)
[2021-12-26] MEDS ORDERED: DOCU-94 PO (13:09)
[2021-12-26] MEDS ORDERED: SUCR1TAB22 PO (13:09)
[2021-12-26] MEDS ORDERED: NIC21P TOP (13:09)
[2021-12-26] MEDS ORDERED: ATO40T PO (13:09)
[2021-12-26 13:15] VITALS: BP 128/68
[2021-12-26 13:37] VITALS: BP 128/68
== END 2021-12-26 15:00 | disposition home health service (06) | DRG 192 ==
LOC: EDBD 21:09 → EDUNIT# 21:09 → ER 21:09 → TELE 12-20 02:45 → TELE-WESTW 12-20 17:40
PROVIDERS: ADMIT Nurse Practitioner; ATTEND Internal Medicine
PROC: 30233N1 Transfusion of Nonautologous Red Blood Cells into Peripheral Vein, Percutaneous Approach (ICD-10-PCS; 2021-12-20)
PROC: 0DJ08ZZ Inspection of Upper Intestinal Tract, Via Natural or Artificial Opening Endoscopic (ICD-10-PCS; 2021-12-21)
PROC: B211YZZ Fluoroscopy of Multiple Coronary Arteries using Other Contrast (ICD-10-PCS; principal; 2021-12-25)
DX: T82.855A Stenosis of coronary artery stent, initial encounter (principal); I21.A1 Myocardial infarction type 2; I50.43 Acute on chronic combined systolic (congestive) and diastolic (congestive) heart failure; K25.4 Chronic or unspecified gastric ulcer with hemorrhage; D75.838 Other thrombocytosis; D50.9 Iron deficiency anemia, unspecified; F12.90 Cannabis use, unspecified, uncomplicated; I13.0 Hypertensive heart and chronic kidney disease with heart failure and stage 1 through stage 4 chronic kidney disease, or unspecified chronic kidney disease; E78.5 Hyperlipidemia, unspecified; F17.210 Nicotine dependence, cigarettes, uncomplicated; K29.81 Duodenitis with bleeding; K29.71 Gastritis, unspecified, with bleeding; Z91.018 Allergy to other foods; I25.10 Atherosclerotic heart disease of native coronary artery without angina pectoris; N18.9 Chronic kidney disease, unspecified; F32.A Depression, unspecified; F41.9 Anxiety disorder, unspecified; Z20.822 Contact with and (suspected) exposure to COVID-19; Y83.1 Surgical operation with implant of artificial internal device as the cause of abnormal reaction of the patient, or of later complication, without mention of misadventure at the time of the procedure; Y92.89 Other specified places as the place of occurrence of the external cause; Z82.49 Family history of ischemic heart disease and other diseases of the circulatory system; Z83.3 Family history of diabetes mellitus; Z90.711 Acquired absence of uterus with remaining cervical stump; Z63.4 Disappearance and death of family member
CPT/HCPCS: 36415; 43235; 71045; 80048; 80053; 80061; 82270; 82306; 82962; 83036; 83540; 83550; 83615; 83735; 83880; 84443; 84484; 85007; 85014; 85018; 85025; 85027; 85610; 85730; 86850; 86900; 86901; 86920; 93005; 93306; 93454; 96365; 96366; 96372; 96375; 97163; 99152; C9113; G0378; J2001; J2250; J2405; J3490; Q9967

== ENCOUNTER 2024-01-14 21:09 | Inpatient (IN) | payer MEDICAID ==
[~2024-01-14] VITALS: Ht 160 cm; Wt 79.5 kg
[~2024-01-14 21:09] MED LIST changes: +ATOR-507 PO; +CAR125T PO; -CHLO25TA2 PO; +CHOL20003 PO; -CHOL20007 OR; -CYCL-837 PO; +DOCU-94 PO; -ENAL10TA13 PO; +ENAL1TAB47 PO; -ESCI-34 PO; -FER325T PO; +FUR20T PO; +GABA-1250 PO; -GABA300C10 PO; -LISI20TA28 PO; -LURA80TA PO; -MELO1TAB56 PO; -METF-489 PO; -MIR30T PO; +NIC21P TOP; -NITR0.4S31; -OLAN15TA; +PANT40TA2 PO; -SIMV-13; +SUCR1TAB31 PO; -TRAM50TA2; -TRAZ-220 PO
[2024-01-14 21:26] LABS: Basophils # (auto) 0.1 10 ^3/uL (0-0.2); Eosinophils # (auto) 0.1 10 ^3/uL (0-0.8); Hematocrit 22.6 % (36.0-46.0)
[2024-01-14 21:28] LABS: Basophils % (auto) 1.1 % (0.0-2.0); Eosinophils % (auto) 0.7 % (0.0-7.0); Lymphocytes # (auto) 3.2 10 ^3/uL (0.4-5.4); Lymphocytes % (auto) 26.1 % (10.0-50.0); Mean Corpuscular Hgb Conc. 28.7 g/dL (32.0-36.0); Mean Corpuscular Volume 83.7 fL (80.0-100.0); Neutrophils # (auto) 7.8 10 ^3/uL (1.6-8.6); Neutrophils % (auto) 64.1 % (37.0-80.0); Nucleated Red Blood Cells % 0.4 %; Red Blood Cells 2.69 10^6/uL (4.0-5.20); White Blood Cell 12.2 10^3/uL (4.4-10.8)
[2024-01-14 21:31] LABS: Hemoglobin 6.5 g/dL (12.2-16.2); Red Cell Distribution Width 21.7 % (11.8-14.3)
[2024-01-14 21:41] LABS: INR 0.99 (0.9-1.15); Partial Thromboplastin Time 22.7 SEC (24.5-34.5); Prothrombin Time 10.5 sec (9.3-11.8)
[2024-01-14 21:45] LABS: Alanine Aminotransferase 21 U/L (7-40); Alkaline Phosphatase 97 U/L (46-116); Anion Gap 9 (5-15); Aspartate Aminotransferase 21 U/L (13-40); BUN/Creatinine Ratio 12.7 (10.0-20.0); Bilirubin, Total 0.3 mg/dL (0.2-1.0); Blood Urea Nitrogen 15 mg/dL (9-23); Calcium 9.4 mg/dL (8.7-10.4); Carbon Dioxide 24 mmol/L (20-30); Chloride 107 mmol/L (98-107); Glucose 237 mg/dL (74-106); Potassium 3.7 mmol/L (3.5-5.1); Sodium 140 mmol/L (136-145); Total Protein 6.3 g/dL (5.7-8.2)
[2024-01-14] MEDS ORDERED: MORPHINE SULFATE INJ 2 MG/ml SYRG IV PRN ×2 (22:30)
[2024-01-14] MEDS ORDERED: ACETAMINOPHEN 325 MG TAB PO PRN ×2 (22:30)
[2024-01-14] MEDS ORDERED: ONDANSETRON HCL 4 MG/2 ML VIAL IV PRN (22:30)
[2024-01-14] MEDS ORDERED: NITROGLYCERIN 0.4 MG SL TAB SL PRN (22:30)
[2024-01-14 22:51] LABS: Triglycerides 67 mg/dL (< 150)
[2024-01-14 22:52] LABS: LDL Cholesterol 81 mg/dL (< 100)
[2024-01-14 22:53] LABS: % Iron Saturation 5.1 % (15-50)
[2024-01-14 22:53] LABS: Cholesterol 147 mg/dL (< 200); HDL Cholesterol 50 mg/dL (40-59)
[2024-01-14] MEDS ORDERED: DEXTROSE (50%) 50ML SYRG IV PRN (23:00)
[2024-01-14] MEDS ORDERED: ALBUTEROL SULF 2.5 MG/0.5ML(0.5%) NEB SOLN NEB PRN (23:00)
[2024-01-14 23:18] LABS: Folate (Folic Acid) 12.93 ng/mL (>5.38)
[2024-01-14 23:19] LABS: Ferritin 21.6 ng/mL (10-291)
[2024-01-14 23:32] VITALS: BP 181/83; PULSE 115; RESP 18; TEMP 99.4; O2SAT 98
[2024-01-15] VITALS (19 sets, daily range): BP systolic 122–168; BP diastolic 57–79; PULSE 88–100; RESP 13–27; TEMP 97.5–98.2; O2SAT 94–100
[2024-01-15] MEDS: PANTOPRAZOLE 40 MG/10 ML VIAL INJ IV ONE (01:08)
[2024-01-15] MEDS: NICOTINE 7MG/24HR TOPICAL PATCH TD ONE (01:09)
[2024-01-15] MEDS: HYDROcodone-ACET 5/325MG TAB PO PRN (03:06)
[2024-01-15] MEDS: FUROSEMIDE 20 MG TAB PO SCH (07:13)
[2024-01-15] MEDS: SUCRALFATE 1 GM TAB PO SCH (07:14)
[2024-01-15] MEDS: ACCU-CHEK COMFORT CURVE STRIP VI SCH (07:17)
[2024-01-15] MEDS: InsuLIN REG 1unit/0.01ml Soln (100units/ml) SC SCH (07:21)
[2024-01-15] MEDS: hydrALAZINE HCL 20 MG/ML VL IV ONE (09:05)
[2024-01-15 09:27] LABS: Basophils # (auto) 0.1 10 ^3/uL (0-0.2); Eosinophils # (auto) 0.1 10 ^3/uL (0-0.8); Hematocrit 30.8 % (36.0-46.0); Lymphocytes # (auto) 2.3 10 ^3/uL (0.4-5.4); Neutrophils % (auto) 66.6 % (37.0-80.0); Red Cell Distribution Width 18.8 % (11.8-14.3)
[2024-01-15 09:32] LABS: Basophils % (auto) 0.6 % (0.0-2.0); Hemoglobin 9.5 g/dL (12.2-16.2); Lymphocytes % (auto) 23.2 % (10.0-50.0); Mean Corpuscular Hemoglobin 25.6 pg (28.0-32.0); Mean Corpuscular Hgb Conc. 30.9 g/dL (32.0-36.0); Mean Corpuscular Volume 82.9 fL (80.0-100.0); Monocytes # (auto) 0.9 10 ^3/uL (0-1.3); Monocytes % (auto) 8.6 % (0.0-12.0); Neutrophils # (auto) 6.7 10 ^3/uL (1.6-8.6); Nucleated Red Blood Cells % 1.6 %; Red Blood Cells 3.71 10^6/uL (4.0-5.20); White Blood Cell 10.1 10^3/uL (4.4-10.8)
[2024-01-15] MEDS: ATORVASTATIN 20 MG TAB PO SCH (09:42)
[2024-01-15] MEDS: GABAPENTIN 300 MG CAP PO SCH (09:42)
[2024-01-15] MEDS: ENALAPRIL MALEATE 10 MG TAB PO SCH (09:42)
[2024-01-15] MEDS: PANTOPRAZOLE 40 MG/10 ML VIAL INJ IV SCH (09:43)
[2024-01-15] MEDS: CARVEDILOL 12.5 MG TAB PO SCH (09:43)
[2024-01-15] MEDS: NICOTINE 7MG/24HR TOPICAL PATCH TD SCH (09:43)
[2024-01-15 09:53] LABS: Alanine Aminotransferase 20 U/L (7-40); Albumin 3.3 g/dL (3.2-4.8); Alkaline Phosphatase 96 U/L (46-116); Anion Gap 4 (5-15); Aspartate Aminotransferase 29 U/L (13-40); BUN/Creatinine Ratio 15.2 (10.0-20.0); Blood Urea Nitrogen 15 mg/dL (9-23); Calcium 8.7 mg/dL (8.5-10.1); Carbon Dioxide 28 mmol/L (20-30); Chloride 111 mmol/L (98-107); Glucose 108 mg/dL (74-106); Potassium 3.8 mmol/L (3.5-5.1); Sodium 143 mmol/L (136-145)
[2024-01-15 09:55] LABS: Bilirubin, Total 2.2 mg/dL (0.2-1.0); Total Protein 6.1 g/dL (5.7-8.2)
[2024-01-15] MEDS ORDERED: IRON SUCROSE COMPLEX 100 ML IV SCH (19:45)
[2024-01-15] MEDS: SODIUM FERR GLUC 62.5MG/5ML 125 MG in SODIUM CHL 0.9% 100 ML IV SCH (20:57)
[2024-01-16] VITALS (8 sets, daily range): BP systolic 125–163; BP diastolic 63–86; PULSE 63–94; RESP 16–20; TEMP 97.7–98.8; O2SAT 96–100
[2024-01-16 05:05] LABS: Basophils # (auto) 0 10 ^3/uL (0-0.2); Basophils % (auto) 0.6 % (0.0-2.0); Eosinophils # (auto) 0.2 10 ^3/uL (0-0.8); Hematocrit 30.6 % (36.0-46.0); Hemoglobin 9.5 g/dL (12.2-16.2); Lymphocytes # (auto) 1.6 10 ^3/uL (0.4-5.4); Lymphocytes % (auto) 19.3 % (10.0-50.0); Mean Corpuscular Hemoglobin 25.5 pg (28.0-32.0); Mean Corpuscular Hgb Conc. 31.3 g/dL (32.0-36.0); Mean Corpuscular Volume 81.6 fL (80.0-100.0); Monocytes # (auto) 0.6 10 ^3/uL (0-1.3); Neutrophils # (auto) 5.7 10 ^3/uL (1.6-8.6); Neutrophils % (auto) 70.1 % (37.0-80.0); Nucleated Red Blood Cells % 0.2 %; Red Blood Cells 3.74 10^6/uL (4.0-5.20); Red Cell Distribution Width 18.6 % (11.8-14.3); White Blood Cell 8.1 10^3/uL (4.4-10.8)
[2024-01-16 05:15] LABS: Chloride 109 mmol/L (98-107); Potassium 3.9 mmol/L (3.5-5.1); Sodium 139 mmol/L (136-145)
[2024-01-16 05:16] LABS: Anion Gap 4 (5-15); Calcium 8.9 mg/dL (8.7-10.4); Carbon Dioxide 26 mmol/L (20-30)
[2024-01-16 05:21] LABS: Glucose 140 mg/dL (74-106)
[2024-01-16 05:22] LABS: BUN/Creatinine Ratio 15.8 (10.0-20.0); Blood Urea Nitrogen 15 mg/dL (9-23)
[2024-01-16] MEDS ORDERED: IRON SUCROSE COMPLEX 100 ML IV SCH (12:00)
[2024-01-17] VITALS (9 sets, daily range): BP systolic 141–159; BP diastolic 69–80; PULSE 76–95; RESP 18–20; TEMP 36.7; O2SAT 93–99
[2024-01-17 07:30] LABS: Basophils # (auto) 0.1 10 ^3/uL (0-0.2); Basophils % (auto) 0.9 % (0.0-2.0); Eosinophils # (auto) 0.1 10 ^3/uL (0-0.8); Eosinophils % (auto) 2.2 % (0.0-7.0); Hematocrit 33.6 % (36.0-46.0); Hemoglobin 10.5 g/dL (12.2-16.2); Lymphocytes # (auto) 1.4 10 ^3/uL (0.4-5.4); Lymphocytes % (auto) 20.5 % (10.0-50.0); Mean Corpuscular Hemoglobin 25.8 pg (28.0-32.0); Mean Corpuscular Hgb Conc. 31.3 g/dL (32.0-36.0); Mean Corpuscular Volume 82.3 fL (80.0-100.0); Monocytes # (auto) 0.8 10 ^3/uL (0-1.3); Monocytes % (auto) 11.8 % (0.0-12.0); Neutrophils # (auto) 4.3 10 ^3/uL (1.6-8.6); Neutrophils % (auto) 64.6 % (37.0-80.0); Nucleated Red Blood Cells % 0.2 %; Red Blood Cells 4.08 10^6/uL (4.0-5.20); Red Cell Distribution Width 18.9 % (11.8-14.3); White Blood Cell 6.7 10^3/uL (4.4-10.8)
[2024-01-17 07:40] LABS: Chloride 107 mmol/L (98-107); Potassium 3.9 mmol/L (3.5-5.1); Sodium 140 mmol/L (136-145)
[2024-01-17 07:41] LABS: Anion Gap 4 (5-15); Calcium 9.1 mg/dL (8.5-10.1); Carbon Dioxide 29 mmol/L (20-30)
[2024-01-17 07:46] LABS: BUN/Creatinine Ratio 15.6 (10.0-20.0); Blood Urea Nitrogen 14 mg/dL (9-23); Glucose 133 mg/dL (74-106)
[2024-01-17] MEDS ORDERED: SODIUM CHLORIDE LOCK 10 ML ONE (15:03)
[2024-01-17] MEDS ORDERED: ONDANSETRON HCL 4 MG/2 ML VIAL ONE (15:03)
[2024-01-17] MEDS ORDERED: MIDAZOLAM HCL 2MG/2ML 2ml VIAL (1mg/ml) ONE (15:03)
[2024-01-17] MEDS ORDERED: KETAMINE 50mg/ML 1ml syringe ONE (15:03)
[2024-01-17] MEDS ORDERED: PROPOFOL 10 MG/ML 20 ML IV ONE (15:03)
[2024-01-17] MEDS ORDERED: fentaNYL CITRATE 100 MCG/2 ML VL ONE (15:03)
== END 2024-01-17 19:25 | disposition home or self-care (01) | DRG 241 ==
LOC: ER 21:09 → TELE-WESTW 22:56 → TELE 22:56 → TELE-WESTW 01-15 18:17
PROVIDERS: ADMIT Internal Medicine Geriatric Medicine; ATTEND Internal Medicine Gastroenterology
PROC: 30233N1 Transfusion of Nonautologous Red Blood Cells into Peripheral Vein, Percutaneous Approach (ICD-10-PCS; principal; 2024-01-15)
PROC: 0DB98ZX Excision of Duodenum, Via Natural or Artificial Opening Endoscopic, Diagnostic (ICD-10-PCS; 2024-01-17)
PROC: 0DB68ZX Excision of Stomach, Via Natural or Artificial Opening Endoscopic, Diagnostic (ICD-10-PCS; 2024-01-17)
PROC: 0DB48ZX Excision of Esophagogastric Junction, Via Natural or Artificial Opening Endoscopic, Diagnostic (ICD-10-PCS; 2024-01-17)
DX: K29.00 Acute gastritis without bleeding (principal); N17.0 Acute kidney failure with tubular necrosis; K22.10 Ulcer of esophagus without bleeding; D50.9 Iron deficiency anemia, unspecified; E11.9 Type 2 diabetes mellitus without complications; E78.5 Hyperlipidemia, unspecified; F17.210 Nicotine dependence, cigarettes, uncomplicated; K29.70 Gastritis, unspecified, without bleeding; K29.80 Duodenitis without bleeding; I10 Essential (primary) hypertension; J44.9 Chronic obstructive pulmonary disease, unspecified; I25.10 Atherosclerotic heart disease of native coronary artery without angina pectoris; F32.A Depression, unspecified; K44.9 Diaphragmatic hernia without obstruction or gangrene; F41.9 Anxiety disorder, unspecified; Z98.61 Coronary angioplasty status; Z91.018 Allergy to other foods; Z79.899 Other long term (current) drug therapy; Z79.82 Long term (current) use of aspirin; Z71.6 Tobacco abuse counseling; Z83.3 Family history of diabetes mellitus; Z90.710 Acquired absence of both cervix and uterus; Z82.49 Family history of ischemic heart disease and other diseases of the circulatory system
CPT/HCPCS: 36415; 71045; 80048; 80053; 80061; 82607; 82728; 82746; 82962; 83036; 83540; 83550; 83615; 83735; 83880; 84443; 84484; 84702; 85025; 85045; 85379; 85610; 85730; 86850; 86900; 86901; 86920; 93005; C9113; G0378; J1815; J2250; J2405; J2704

== ENCOUNTER → 2024-03-04 | Outpatient (CLI) | payer MEDICAID ==
[~2024-03-04] VITALS: Ht 160 cm; Wt 74.8 kg
[~2024-03-04] MED LIST changes: -ASPI81CH43 PO
[2024-03-04] MEDS: REGADENOSON 0.4 MG/5 ML SYRG IV ONE ×2 (09:05)
== END | disposition home or self-care (01) ==
LOC: XY 07:14
PROVIDERS: ATTEND Internal Medicine
DX: I11.9 Hypertensive heart disease without heart failure (principal)
CPT/HCPCS: 78452; 93017; A9500; J2785